=== PATIENT | female | born 1995 | race Caucasian/White ===

== ENCOUNTER 2021-12-19 03:08 | Emergency (ER) | payer MEDICAID ==
[~2021-12-19] VITALS: Ht 162.6 cm; Wt 73.1 kg
[2021-12-19 03:21] VITALS: BP 115/75
--- NOTE | 2021-12-19 03:25 | NUR ---
pt to bed ambulatory
--- NOTE | 2021-12-19 04:15 | NUR ---
Patient resting in bed with eyes closed, A/Ox4, chest rise and fall symmetrical, no c/o pain or s/s of discomfort.
[2021-12-19] MEDS ORDERED: PSEU120T23 PO (05:19)
[2021-12-19] MEDS ORDERED: FLONAS NS (05:19)
[2021-12-19] MEDS ORDERED: NAPR-54 PO (05:19)
[2021-12-19 05:25] VITALS: BP 107/68
== END 2021-12-19 05:26 | disposition home or self-care (01) ==
LOC: MED 03:08
DX: J06.9 Acute upper respiratory infection, unspecified (principal); Z20.822 Contact with and (suspected) exposure to COVID-19; Z79.899 Other long term (current) drug therapy
CPT/HCPCS: 71045; 87426; 87804; 99284; Q0092